=== PATIENT | female | born 1935 | race Caucasian/White ===

== ENCOUNTER 2017-12-17 15:14 | Emergency (ER) | payer MEDICARE, OTHER ==
--- NOTE | 2017-12-17 16:22 | RAD ---
THREE VIEWS LEFT ANKLE: DATE: 12/17/17. HISTORY: Left ankle injury after falling down stairs. Left ankle pain. FINDINGS: The ankle mortise is congruent. No fracture or dislocation is seen. There is a tiny corticated osse ous density adjacent to the medial malleolus that may represent either a tiny avulsion injury versus accessory center of ossification. The ankle mortise is congruent. Plantar and posterior calcaneal e nthesophytes are identified. There is osteopenia. Vascular calcifications are seen anterior to the ankle. IMPRESSION: No acute osseous abnormality of the left ankle. POS: OFF
--- NOTE | 2017-12-17 16:22 | RAD ---
TWO VIEWS LEFT HIP: 12/17/17 HISTORY: Left hip pain. FINDINGS: No acute fracture or dislocation is seen. No lytic or sclerotic osseous lesions are appreciated. IMPRESSION: No acute osseous abnormality left hip. POS: OFF
--- NOTE | 2017-12-17 16:23 | RAD ---
AP PELVIS RADIOGRAPH: DATE: 12/17/17. HISTORY: Left hip pain. FINDINGS: There is no evidence of a fracture or dislocation. No lytic or sclerotic osseous lesions are seen. 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 IMPRESSION: No acute osseous abnormality. POS: OFF
== END 2017-12-17 17:03 | disposition home or self-care (01) ==
LOC: ERS 15:14
DX: S93.402A Sprain of unspecified ligament of left ankle, initial encounter (principal); W10.9XXA Fall (on) (from) unspecified stairs and steps, initial encounter
CPT/HCPCS: 72170

== ENCOUNTER 2018-06-04 10:37 | Outpatient (CLI) | payer MEDICARE, OTHER ==
[2018-06-04] MEDS ORDERED: Iopamidol 370 76% 100 ML VIAL ONE (11:33)
== END 2018-06-04 10:38 | disposition home or self-care (01) ==
LOC: BICCT 10:37
PROVIDERS: ATTEND Internal Medicine Gastroenterology
DX: R10.32 Left lower quadrant pain (principal); K46.9 Unspecified abdominal hernia without obstruction or gangrene; N28.9 Disorder of kidney and ureter, unspecified
CPT/HCPCS: 74177; 82565

== ENCOUNTER 2018-10-22 09:36 | Outpatient (CLI) | payer MEDICARE, OTHER ==
--- NOTE | 2018-10-22 11:17 | RAD ---
4 VIEWS LUMBAR SPINE: Date: 10/22/18 HISTORY: Back injection. FINDINGS: There are five lumbar-type vertebral bodies. There is diffuse bone demineralization. Vertebral body h eight is maintained. There is no fracture. There is mild to moderate loss of disc space height at L2- L3 and mild to moderate loss of disc space height at L5-S1. In the neutral position, no spondylolisth esis. Upon flexion or extension, no abnormal alignment or motion. Atherosclerosis of aorta is noted. IMPRESSION: 1. Degenerative changes of lumbar spine as above. 2. No evidence of spondylolisthesis or spondylolysis. POS: [facility]
== END 2018-10-22 09:37 | disposition home or self-care (01) ==
LOC: TBSIIMAG 09:36
PROVIDERS: ATTEND Surgery
DX: M48.061 Spinal stenosis, lumbar region without neurogenic claudication (principal); M51.36 Other intervertebral disc degeneration, lumbar region; M54.5 Low back pain; M47.816 Spondylosis without myelopathy or radiculopathy, lumbar region
CPT/HCPCS: 72110

== ENCOUNTER 2018-10-27 10:11 | Outpatient (CLI) | payer MEDICARE, OTHER | END 2018-10-27 10:12 | disposition home or self-care (01) | LOC: BICMAMMO 10:11 | PROVIDERS: ATTEND Internal Medicine | DX: Z12.31 Encounter for screening mammogram for malignant neoplasm of breast (principal); Z80.3 Family history of malignant neoplasm of breast; Z85.3 Personal history of malignant neoplasm of breast | CPT/HCPCS: 77063; 77067 ==

== ENCOUNTER 2018-12-23 14:12 | Outpatient (CLI) | payer MEDICARE, OTHER ==
--- NOTE | 2018-12-23 19:39 | MRI ---
MRI LUMBAR SPINE WITHOUT CONTRAST: HISTORY: Lumbar radiculopathy. Low back pain with radiation into the right leg. COMPARISON: None. TECHNIQUE: An MRI of the lumbar spine is performed with intravenous Gadolinium administration. Multisequential, multiplanar imaging is performed. FINDINGS: There are type I modic changes at L2-L3. Lumbar spine vertebral body height is maintained. There is no fracture. T2 hyperintensities in the left and right renal cortex, compatible with cortical cysts . No retroperitoneal mass, lymphadenopathy, or hematoma. Signal intensity of the psoas muscles. The conus medullaris terminates at the upper aspect of L1. T12-L1: Desiccation with mild loss of disk space height. Minimal central disk protrusion. No signi ficant central canal stenosis. Mild bilateral neural foraminal narrowing. L1-L2: Desiccation with mild loss of disk space height. Generalized disk bulge results in mild cent ral canal stenosis. The neural foramina are mildly narrowed bilaterally. L2-L3: Desiccation with mild loss of disk space height. Generalized disk bulge, ligamentum flavum t hickening, and facet hypertrophy result in mild central canal stenosis. There is narrowing of both s ubarticular zones with mass effect, without obscuration of bilateral traversing L3 nerve roots. Mild to moderate bilateral foraminal narrowing. L3-L4: Desiccation with mild loss of disk space height. There is a generalized disk bulge, ligament um flavum thickening, and facet hypertrophy that results in mild central canal stenosis. Mild encroa chment upon both subarticular zones, secondary to disk material. There is mass effect without obscur ation of bilateral traversing L4 nerve roots. The neural foramina are mildly narrowed bilaterally. L4-L5: There is mild loss of disk space height. There is a broad-based disk bulge with a central an nular fissure. Ligamentum flavum thickening and facet hypertrophy are present. There is resultant m ild to moderate central canal stenosis. Mild bilateral foraminal narrowing. L5-S1: Desiccation with moderate loss of disk space height. There is a broad-based disk bulge, liga mentum flavum thickening, and facet hypertrophy that results in mild central canal stenosis. Narrowi ng of both subarticular zones, left slightly greater than right. There is mass effect with mild obsc uration of both traversing S1 nerve roots. Small amount of fluid in both facet joints. Moderate rig ht and moderate to severe left foraminal narrowing. IMPRESSION: Degenerative changes of the lumbar spine, as above. POS: [facility]
== END 2018-12-23 14:13 | disposition home or self-care (01) ==
LOC: BICMRI 14:12
PROVIDERS: ATTEND Surgery
DX: M47.26 Other spondylosis with radiculopathy, lumbar region (principal); M47.27 Other spondylosis with radiculopathy, lumbosacral region
CPT/HCPCS: 72148

== ENCOUNTER 2019-01-06 00:18 | Outpatient (CLI) | payer MEDICARE, OTHER ==
[2019-01-06 11:43] LABS: INR-International Normal Ratio 0.9; Prothrombin Time 12.3 SEC (12.0-14.7)
[2019-01-06 11:44] LABS: #Basophils 0.1 thou/uL (0.0-0.2); #Eosinphils 0.2 thou/uL (0.0-0.7); #Monocytes 0.6 thou/uL (0.11-0.59); #Neutrophils 2.8 thou/uL (1.40-6.50); %Basophils 1.1 % (0.0-1.0); %Eosinophils 3.6 % (0.0-10.0); %Lymphocytes 34.7 % (21.0-51.0); %Monocytes 11.4 % (0.0-10.0); %Neutrophils 49.1 % (42.0-75.0); Hemoglobin 14.3 g/dL (12.0-16.0); Mean Corpuscular HGB CONC 32.9 g/dL (32.0-36.0); Mean Corpuscular Hemoglobin 33.1 pg (27.0-31.0); Mean Platelet Volume 7.2 fL (7.4-10.4); Platelet Count 259 thou/uL (130-400); RBC Distribution Width 11.1 % (11.5-14.5); Red Blood Cell (RBC) Count 4.33 mill/uL (4.20-5.40); White Blood Cell (WBC) Count 5.7 thou/uL (4.8-10.8)
[2019-01-06 11:59] LABS: Anion Gap 14 mmol/L (10-20); BUN (Urea Nitrogen) 13 mg/dL (9.8-20.1); Calc. Creatinine Clearance 0 mL/min (70-130); Calcium 10.1 mg/dL (7.8-10.44); Carbon Dioxide 27 mmol/L (23-31); Chloride 104 mmol/L (98-107); Estimated GFR-MDRD 76; Glucose 92 mg/dL (83-110); Potassium 3.7 mmol/L (3.5-5.1); Sodium 141 mmol/L (136-145)
== END 2019-01-06 00:19 | disposition home or self-care (01) ==
LOC: LABBT 00:18
PROVIDERS: ATTEND Surgery
DX: Z12.31 Encounter for screening mammogram for malignant neoplasm of breast (principal); M54.16 Radiculopathy, lumbar region; M48.061 Spinal stenosis, lumbar region without neurogenic claudication
CPT/HCPCS: 80048; 85025; 85610; 85730; 93005; 93010

== ENCOUNTER 2019-01-13 07:20 | Observation (INO) | payer MEDICARE, OTHER ==
[2019-01-06 09:51] VITALS: BMI 23.8
[2019-01-13] MEDS ORDERED: Clindamycin/D5W 900 mg/50 ml Premix Bag ONE (08:13)
[2019-01-13] MEDS ORDERED: Levofloxacin 500 mg/D5W 100 ml Premix Bag ONE (08:13)
[2019-01-13] MEDS ORDERED: Famotidine/PF 20 mg/2ml Vial ONE (08:28)
[2019-01-13] MEDS ORDERED: Sodium Chloride 0.9% 0 ML ONE (10:19)
[2019-01-13] MEDS ORDERED: Bacitracin Zinc Ointment 30 gm TUBE ONE ×2 (10:19→10:37)
[2019-01-13] MEDS ORDERED: Thrombin 5000 UNITS/5 ML VIAL ONE ×2 (10:19→10:37)
[2019-01-13] MEDS ORDERED: Fentanyl 100 MCG/2 ML VIAL ONE ×3 (10:23→13:36)
[2019-01-13] MEDS ORDERED: Sodium Chloride 0.9% 10 ML ONE (10:37)
[2019-01-13] MEDS ORDERED: Dexamethasone 20 MG/5 ML VIAL ONE (10:50)
[2019-01-13] MEDS ORDERED: PROPOFOL 200 MG/20 ML VIAL ONE (10:50)
[2019-01-13] MEDS ORDERED: Rocuronium Bromide 10 MG/ML (10ML VIAL) ONE (10:50)
[2019-01-13] MEDS ORDERED: Glycopyrrolate 0.2 MG/ML 5 ML SYRINGE ONE (10:50)
[2019-01-13] MEDS ORDERED: Lidocaine 1% PF 5 ML VIAL ONE (10:50)
[2019-01-13] MEDS ORDERED: Ondansetron PF 4 MG/2 ML Vial ONE (10:50)
[2019-01-13] MEDS ORDERED: ePHEDrine 50 MG/ML VIAL ONE (10:50)
[2019-01-13] MEDS ORDERED: Promethazine HCl 25 MG/ML VIAL SLOW IVP PRN (11:53)
[2019-01-13] MEDS ORDERED: Meperidine HCl/PF 25 MG/ML VIAL SLOW IVP PRN (11:53)
[2019-01-13] MEDS ORDERED: Promethazine HCl 25 MG/ML VIAL IM PRN ×2 (11:53→12:34)
[2019-01-13] MEDS ORDERED: Mag-Al 1200 mg/1200 mg/30 ML UDCUP PO PRN (12:34)
[2019-01-13] MEDS ORDERED: Bisacodyl 10 MG SUPP PR PRN (12:34)
[2019-01-13] MEDS ORDERED: Fleet Enema 133 ML BOT PR PRN (12:34)
[2019-01-13] MEDS ORDERED: Milk Of Magnesia 30 ML UDCUP PO PRN (12:34)
[2019-01-13] MEDS ORDERED: Morphine 4 MG/ML VIAL SLOW IVP PRN (12:34)
[2019-01-13] MEDS ORDERED: cloNIDine 0.1 MG TAB PO PRN (12:38)
--- NOTE | 2019-01-13 12:47 | OP ---
DATE OF PROCEDURE: 01/13/2019 TRADE ECONOMIST: Rudolph Marshall PA-C. PREPROCEDURE DIAGNOSIS: Lumbar stenosis with low back and leg pain. POSTPROCEDURE DIAGNOSIS: Lumbar stenosis with low back and leg pain. PROCEDURES PERFORMED: L4-L5 and L5-S1 laminectomies, partial facetectomies, and foraminotomies, L4-L5 and L5-S1 nerve root. DESCRIPTION OF PROCEDURE: After informed consent was obtained from the patient, the patient was brought to the OR. Proper patient, pause, and identification were carried out. She was placed under excellent general endotracheal anesthesia and positioned prone on the OR table. All appropriate points were padded. We identified the L4, L5, and S1 dorsal spines and lamina and a linear joe was made over this area. This region was sterilely cleansed, prepared, and draped. Proper patient, pause, and identification were carried out. The wound was then opened with combination of sharp, monopolar, and blunt dissection, and we achieved excellent decompression of the L4, L5, and S1 nerve roots bilaterally and the thecal sac. Copious irrigation occurred throughout as did maximizing hemostasis. The wound was then closed in anatomic layers following sprinkling of vancomycin powder. The patient then emerged from anesthesia. Job ID: [id number]
[2019-01-13] MEDS ORDERED: Promethazine HCl 25 MG/ML VIAL ONE (13:03)
[2019-01-13] MEDS: HYDROcodone/Acetaminophen 7.5/325 mg Tablet PO PRN (16:22)
[2019-01-13] MEDS: Sodium Chloride 0.9% 1,000 ML IV SCH (16:25)
[2019-01-13] MEDS: Clindamycin/D5W 900 MG in Premix Bag 1 BAG IVPB SCH (16:25)
[2019-01-13] MEDS: tiZANidine HCl 4 MG TAB PO PRN (20:58)
[2019-01-13] MEDS ORDERED: Prevnar 13-Val Conj/PF 0.5 ML SYRINGE IM ONE (21:00)
[2019-01-14] MEDS: Clindamycin/D5W 900 MG in Premix Bag 1 BAG IVPB SCH (00:32)
[2019-01-14] MEDS: Sodium Chloride 0.9% 1,000 ML IV SCH ×3 (01:38→22:21)
[2019-01-14] MEDS: Amlodipine 5 MG TAB PO SCH (08:47)
[2019-01-14] MEDS: Losartan 25 MG TAB PO SCH (08:47)
[2019-01-14] MEDS: HYDROcodone/Acetaminophen 7.5/325 mg Tablet PO PRN (14:01)
--- NOTE | 2019-01-14 17:18 | PRG ---
DATE OF SERVICE: 01/14/2019 SUBJECTIVE: Ms. Canseco is postoperative day #1 from L4 through S1 laminectomy, partial facetectomy, and foraminotomies. She has had resolution in her leg pain and has mobilized in the hallway. Her has Parkinson disease, and she lives at home with him. He is not able to take care of her in the postoperative period, and I think it would be in her best interest to consider inpatient rehab, and we have placed a consultation in it for evaluation in this regard. I supposed it is possible over the weekend that she recovers enough from her surgery that the extended family member who is here could also assist. We will see how she does over the next 24 to 48 hours. Job ID: [id number]
[2019-01-14] MEDS: tiZANidine HCl 4 MG TAB PO PRN (20:12)
[2019-01-14] MEDS: Acetaminophen 325 MG TAB PO PRN (20:12)
[2019-01-14] MEDS ORDERED: Clopidogrel Bisulfate 75 MG TAB ONE (21:08)
[2019-01-15] MEDS: traMADol HCl 50 MG TAB PO PRN ×2 (06:26→16:46)
[2019-01-15] MEDS: tiZANidine HCl 4 MG TAB PO PRN (06:26)
[2019-01-15 07:18] LABS: #Eosinphils 0.1 thou/uL (0.0-0.7); #Lymphocytes 2.2 thou/uL (1.20-3.40); #Monocytes 1.3 thou/uL (0.11-0.59); #Neutrophils 5.2 thou/uL (1.40-6.50); %Basophils 0.5 % (0.0-1.0); %Eosinophils 0.9 % (0.0-10.0); %Lymphocytes 24.8 % (21.0-51.0); %Monocytes 14.4 % (0.0-10.0); %Neutrophils 59.3 % (42.0-75.0); Hemoglobin 11.2 g/dL (12.0-16.0); Mean Corpuscular HGB CONC 32.2 g/dL (32.0-36.0); Mean Corpuscular Hemoglobin 33.4 pg (27.0-31.0); Mean Platelet Volume 6.9 fL (7.4-10.4); Platelet Count 204 thou/uL (130-400); RBC Distribution Width 11.2 % (11.5-14.5); Red Blood Cell (RBC) Count 3.35 mill/uL (4.20-5.40); White Blood Cell (WBC) Count 8.7 thou/uL (4.8-10.8)
[2019-01-15 07:45] LABS: Anion Gap 10 mmol/L (10-20); BUN (Urea Nitrogen) 13 mg/dL (9.8-20.1); Calc. Creatinine Clearance 52 mL/min (70-130); Calcium 9.2 mg/dL (7.8-10.44); Carbon Dioxide 30 mmol/L (23-31); Chloride 105 mmol/L (98-107); Estimated GFR-MDRD 76; Glucose 83 mg/dL (83-110); Potassium 3.8 mmol/L (3.5-5.1); Sodium 141 mmol/L (136-145)
[2019-01-15] MEDS ORDERED: Ketorolac Tromethamine 30 MG/ML VIAL IVP SCH (08:00)
--- NOTE | 2019-01-15 11:28 | PRG ---
DATE OF SERVICE: 01/15/2019 SUBJECTIVE: Ms. Canseco is two days status post laminectomy. She continues to struggle with a substantial amount of predominantly axial back pain. Physical therapy was about to work with her when I entered the room. We are waiting for rehab placement. In the meanwhile, we will continue to treat her with physical therapy. I have encouraged her to remain active and motivated to recover. Job ID: [id number]
[2019-01-15] MEDS ORDERED: Ondansetron PF 4 MG/2 ML Vial IVP PRN (12:21)
[2019-01-15] MEDS ORDERED: Ondansetron ODT 4 MG TAB PO PRN (12:21)
[2019-01-15] MEDS: Amlodipine 5 MG TAB PO SCH (16:37)
[2019-01-15] MEDS: Losartan 25 MG TAB PO SCH (16:38)
[2019-01-15] MEDS: Acetaminophen 325 MG TAB PO PRN ×2 (16:40→20:55)
[2019-01-15] MEDS: Sodium Chloride 0.9% 1,000 ML IV SCH (19:33)
[2019-01-16] MEDS: traMADol HCl 50 MG TAB PO PRN (05:15)
[2019-01-16] MEDS: Acetaminophen 325 MG TAB PO PRN (05:16)
--- NOTE | 2019-01-16 07:40 | PRG ---
DATE OF SERVICE: Ms. Canseco is postop day #3 following lumbar laminectomy with Dr. Salinas and yesterday well she did have significant amount of pain and a rather difficult day. This morning, her pains have significantly improved. Plan for today again will be therapy and ambulation and to get her out of bed more frequently. We will anticipate again transfer to rehab sometime in the beginning of the week. We will follow up with the mental health case manager in the morning. Job ID: [id number]
[2019-01-16] MEDS: Sodium Chloride 0.9% 1,000 ML IV SCH (08:10)
[2019-01-16] MEDS: Amlodipine 5 MG TAB PO SCH (08:11)
[2019-01-16] MEDS: Losartan 25 MG TAB PO SCH (08:11)
[2019-01-16 08:17] VITALS: TEMP 98
[2019-01-16 11:57] VITALS: BP 116/61
--- NOTE | 2019-01-17 08:34 | PRG ---
DATE OF SERVICE: 01/15/2019 SUBJECTIVE: Ms. Luo is now postop day 2 following lumbar decompression with Dr. Salinas. Yesterday, she states that she well and then overnight started to have increasing lower back pain. She received one dose of pain medications earlier this morning and it seems to have made her more comfortable. She was thus ambulating well in the hallways, but since her pain surfaced that often, I have limited her mobility. I will see if I can add some p.r.n. Toradol for a couple of doses to get her pain back into a more tolerable zone allowing her to ambulate. We will await to see how well she does over the next 24 to 48 hours to see if she will need either inpatient rehab placement or safe enough to be discharged home. Wound is very well approximated Job ID: [id number]
--- NOTE | 2019-01-17 13:16 | DIS ---
DATE OF ADMISSION: 01/13/2019 DATE OF DISCHARGE: 01/16/2019 HISTORY OF PRESENT ILLNESS: Ms. Canseco is an 83-year-old woman, who was admitted to [facility] on 01/13/[address] Charles Salinas. ADMISSION DIAGNOSIS: Status post lumbar decompression. DISCHARGE DIAGNOSIS: Status post lumbar decompression. HOSPITAL COURSE: Ms. Canseco's hospital course was somewhat complicated by mild pain control issues that were controlled with IV and oral pain medications of our typical priority. She ambulated with physical therapy each day that she was here, admitted. Consultations were ordered for PT/OT, Case Management, and inpatient rehab. She ultimately was approved for rehab and accepted and was discharged on 01/16/2019 to that facility with outpatient followup planned in the outpatient clinic in 2 weeks. Job ID: [id number]
== END 2019-01-16 15:44 ==
LOC: SDC 07:20 → SURG A 15:00
PROVIDERS: ADMIT Surgery; ATTEND Surgery
PROC: 01NB0ZZ Release Lumbar Nerve, Open Approach (ICD-10-PCS; principal; 2019-01-13)
DX: M48.061 Spinal stenosis, lumbar region without neurogenic claudication (principal); Z88.5 Allergy status to narcotic agent; Z88.0 Allergy status to penicillin; Z88.2 Allergy status to sulfonamides; Z79.899 Other long term (current) drug therapy
CPT/HCPCS: 63047; 63048; 76000; 80048; 85025; 96365; 96366; 96367; 97110 ×2; 97116 ×2; 97139 ×2; 97535; G0378 ×5; 36415; J0131; J1100; J1956; J2001; J2405; J2550; J2704; J3010; J3370; J3490; S0028

== ENCOUNTER 2019-09-21 09:47 | Outpatient (CLI) | payer MEDICARE, OTHER ==
--- NOTE | 2019-09-21 12:06 | MRI ---
MRI thoracic spine with and without contrast: DATE: 09/21/2019 HISTORY: 83-year-old female with history of breast cancer presents with mid and low back pain, and difficulty walking. Rule out cord compression. FINDINGS: There is ACDF hardware in the cervical spine down to the C7 level. The thoracic spinal canal is gener ous in caliber at all levels. Conus medullaris terminates at L1. There is a vertically elongated thin T1 and T2 hypointense mass in the anterior epidural space which is inseparable from the posterio r edge of the T12-L1 intervertebral disc and that of L1-2. This appearance is unchanged since 12/23/2018, and could either represent a extruded disc herniation with migration or calcified posterio r longitudinal ligament. This does not cause significant central spinal canal stenosis. Vertebral body heights are maintained. No high-grade neural foraminal stenosis in the thoracic spine. No high-g rade degenerative disc disease in the thoracic spine. Mild degenerative disc disease at T12-L1 and T11-12. Normal bone marrow signal except for small hemangioma of bone at the posterior aspect of the T4 vertebral body. Thoracic spinal cord is normal in size, with no syringohydromyelia. No cord impingement. No abnormal enhancement or mass in the intramedullary, extramedullary-intradural, extrad ural, intraosseous, or perivertebral, spaces. Cerebral small T2 hyperintense lesions in the bilateral kidneys, incompletely evaluated. At least most of them are small cysts. IMPRESSION: 1. No cord compression, central spinal canal stenosis, or neural foraminal stenosis, at a level in th e thoracic spine. 2. Vertically thin but long midline central disc extrusion in the anterior epidural space throughout the height of T12, either representing extruded disc material from T12-L1 with inferior migration down to the L1-2 level, or extruded disc material from L1 to superiorly migrating to the T12-L1 level . This is unchanged since lumbar spine MRI of 12/23/2018, and does not impinge on nerve roots or cause significant central spinal canal stenosis. 3. Otherwise, the rest of the thoracic spine is normal.
--- NOTE | 2019-09-21 13:12 | RAD ---
4 VIEWS OF THE LUMBAR SPINE:: 09/21/2019 COMPARISON: 10/22/2018 HISTORY: Radiculopathy FINDINGS: There is atherosclerotic calcification of the abdominal aorta. The patient appears status post bilateral laminectomy at L4/L5. Neutral lateral imaging demonstrates no anterolisthesis or retrolisthesis. There is disc space narrow ing and degenerative endplate change at L2-3 and to a lesser degree, L5-S1. The flexion imaging and the extension imaging demonstrates no anterolisthesis or retrolisthesis. Lumbar pedicles appear intac t on frontal imaging. No acute osseous abnormality. IMPRESSION: Degenerative changes as detailed above. Transcribed Date/Time: 09/21/2019 1:20 PM
--- NOTE | 2019-09-21 13:33 | MRI ---
MRI lumbar spine with and without contrast: 09/21/2019 COMPARISON: Noncontrast enhanced MRI lumbar spine 12/23/2018 HISTORY: Low back pain radiating "up the spine" Technique: Multiplanar multisequence MR imaging of the lumbar spine obtained with and without contras t FINDINGS: The sagittal STIR imaging demonstrates mild edematous degenerative endplate change at the L 2-3 level. There is evidence of bilateral laminectomy changes at L4 and L5 with associated mild increased STIR signal within the soft tissues posterior to the thecal sac at this level, extending in to the region of the adjacent paraspinal musculature, likely on the basis of postoperative change. There is a 7 mm round fluid collection posterior to the thecal sac at the axial level of the L4-5 int ervertebral disc suggesting a small nonspecific postoperative fluid collection. On the basis of 5 lumbar type vertebral bodies, the conus medullaris terminates at T12-L1. T12-L1: There is disc desiccation and mild disc space narrowing with a small central disc protrusion. No associated central canal or neural foraminal stenosis. L1-2: There is disc space narrowing and disc desiccation with mild disc bulge. There is a small centr al/right paracentral disc protrusion with no associated central canal or neural foraminal stenosis. L2-3: There is disc space narrowing and disc desiccation with anterior osteophyte formation, degenera tive endplate change, and a disc osteophyte complex. This effaces the ventral thecal sac and causes a mild degree of central canal stenosis. Mild bilateral facet hypertrophy and hypertrophy of the liga mentum flavum noted with mild bilateral neural foraminal stenosis. L3-4: Mild bilateral facet hypertrophy and hypertrophy of the ligamentum flavum. There is disc space narrowing and disc desiccation with disc bulge. There is a small foraminal and post foraminal disc protrusion on the right. There is no significant central canal stenosis. No significant neural forami nal stenosis is noted on either side. L4-5: There is bilateral facet hypertrophy. No significant central canal or neural foraminal stenosis . There is disc space narrowing and disc desiccation with mild disc bulge. L5-S1: There is disc space narrowing and disc desiccation with mild disc bulge. No significant centra l canal stenosis. There is bilateral facet hypertrophy, left greater than right. Mild right and moderate left neural foraminal stenosis. Aside from the new postoperative changes, there has been no significant interval change when compared to 12/23/2018 examination. The postcontrast imaging demonstrates prominent enhancement involving the soft tissues posterior to t he thecal sac just to the right and just to the left of midline at the axial level of the L4-5 disc extending to the axial level of the S1 vertebral body including enhancement of the medial musculature bilaterally and the postoperative region. There is no abnormal enhancement involving the nerve roots of the cauda equina, the visualized osseous structures, or the intervertebral discs. The visualized retroperitoneal structures demonstrate no acute findings. IMPRESSION: Postoperative and degenerative changes within the lumbar spine as detailed above. There i s significant enhancement involving the soft tissues posterior to the thecal sac at the postoperative site, including the paraspinal musculature, suggesting significant postoperative scar.
[2019-09-21] MEDS ORDERED: Magnevist 469MG/ML 20 ML VIAL ONE ×2 (14:32→14:33)
== END 2019-09-21 09:48 | disposition home or self-care (01) ==
LOC: BICMRI 09:47
PROVIDERS: ATTEND Surgery
DX: M47.26 Other spondylosis with radiculopathy, lumbar region (principal); M48.061 Spinal stenosis, lumbar region without neurogenic claudication; M54.5 Low back pain; Z98.890 Other specified postprocedural states
CPT/HCPCS: 72110; 72157; 72158; 82565; A9579

== ENCOUNTER 2019-10-18 09:29 | Outpatient (CLI) | payer MEDICARE, OTHER ==
--- NOTE | 2019-10-19 07:36 | RAD ---
EXAM: 2 views of the left hip HISTORY: Left hip pain COMPARISON: None FINDINGS: 2 views of the left hip shows no evidence of acute fracture or dislocation. No degenerative changes are seen. No soft tissue swelling is present. IMPRESSION: No evidence of acute osseous abnormality.
== END 2019-10-18 09:30 | disposition home or self-care (01) ==
LOC: BICRAD 09:29
PROVIDERS: ATTEND Nurse Practitioner Family
DX: M25.552 Pain in left hip (principal)

== ENCOUNTER 2019-10-28 09:07 | Outpatient (CLI) | payer MEDICARE, OTHER ==
--- NOTE | 2019-10-28 09:58 | MMO ---
Bilateral MAMMO Bilat Screen [facility]. CLINICAL HISTORY: Patient is 83 years old and is seen for screening. The patient has the following family history of breast cancer: mother and sister. The patient has a history of left Lumpectomy in 2009 - malignant and left Lumpectomy in 2009 - malignant. VIEWS: The views performed were: bilateral craniocaudal with tomosynthesis and bilateral mediolateral oblique with tomosynthesis. FILMS COMPARED: The present examination has been compared to prior imaging studies performed at [facility] on 09/27/2015, 09/30/2016, 10/06/2017 and 10/27/2018. This study has been interpreted with the assistance of computer-aided detection. MAMMOGRAM FINDINGS: The breasts are heterogeneously dense, which could obscure a lesion on mammography. Finding 1: There are stable benign appearing calcifications seen in both breasts. Finding 2: There are multiple stable nodules of varying size seen in both breasts. There are no suspicious masses, suspicious calcifications, or new areas of architectural distortion. IMPRESSION: THERE IS NO MAMMOGRAPHIC EVIDENCE OF MALIGNANCY. A ROUTINE FOLLOW-UP MAMMOGRAM IN 1 YEAR IS RECOMMENDED. THE RESULTS OF THIS EXAM WERE SENT TO THE PATIENT. ACR BI-RADS Category 2 - Benign finding MAMMOGRAPHY NOTE: 1. A negative mammogram report should not delay a biopsy if a dominant of clinically suspicious mass is present. 2. Approximately 10% to 15% of breast cancers are not detected by mammography. 3. Adenosis and dense breasts may obscure an underlying neoplasm. Reported by: VICKY MICHELLE MD Electonically Signed: [id number]
== END 2019-10-28 09:08 | disposition home or self-care (01) ==
LOC: BICMAMMO 09:07
PROVIDERS: ATTEND Internal Medicine
DX: Z12.31 Encounter for screening mammogram for malignant neoplasm of breast (principal); Z80.3 Family history of malignant neoplasm of breast
CPT/HCPCS: 77063; 77067

== ENCOUNTER 2020-10-30 09:45 | Outpatient (CLI) | payer MEDICARE, OTHER ==
--- NOTE | 2020-10-30 10:48 | MMO ---
Bilateral MAMMO Bilat Screen [facility]. CLINICAL HISTORY: Patient is 84 years old and is seen for screening. The patient has the following family history of breast cancer: mother and sister. The patient has a history of left Lumpectomy in 2009 - malignant and left Lumpectomy in 2009 - malignant. VIEWS: The views performed were: bilateral craniocaudal with tomosynthesis and bilateral mediolateral oblique with tomosynthesis. FILMS COMPARED: The present examination has been compared to prior imaging studies performed at [facility] on 09/30/2016, 10/06/2017, 10/27/2018 and 10/28/2019. This study has been interpreted with the assistance of computer-aided detection. MAMMOGRAM FINDINGS: The breasts are heterogeneously dense, which could obscure a lesion on mammography. There are stable nodules seen in both breasts. There are no suspicious masses, suspicious calcifications, or new areas of architectural distortion. IMPRESSION: THERE IS NO MAMMOGRAPHIC EVIDENCE OF MALIGNANCY. A ROUTINE FOLLOW-UP MAMMOGRAM IN 1 YEAR IS RECOMMENDED. THE RESULTS OF THIS EXAM WERE SENT TO THE PATIENT. ACR BI-RADS Category 2 - Benign finding MAMMOGRAPHY NOTE: 1. A negative mammogram report should not delay a biopsy if a dominant of clinically suspicious mass is present. 2. Approximately 10% to 15% of breast cancers are not detected by mammography. 3. Adenosis and dense breasts may obscure an underlying neoplasm. Reported by: SANDRA WORLEY MD Electonically Signed: [id number]
== END 2020-10-30 09:46 | disposition home or self-care (01) ==
LOC: BICMAMMO 09:45
PROVIDERS: ATTEND Internal Medicine
DX: Z12.31 Encounter for screening mammogram for malignant neoplasm of breast (principal); Z98.890 Other specified postprocedural states; Z80.3 Family history of malignant neoplasm of breast
CPT/HCPCS: 77063; 77067

== ENCOUNTER 2021-01-23 17:34 | Inpatient (IN) | payer MEDICARE, OTHER ==
[~2021-01-23 17:34] MED LIST: Iopamidol-370 76% 500 ML 1 ML ONE
[2021-01-23] MEDS ORDERED: Aspirin Chewable 81 MG TAB ONE (19:32)
[2021-01-24 05:05] VITALS: BMI 22.6
[2021-01-24 08:25] VITALS: TEMP 97.8
[2021-01-24] MEDS ORDERED: Aspirin 81 mg Enteric Coated Tablet PO SCH (09:00)
[2021-01-24 12:29] VITALS: BP 182/74
[2021-01-24] MEDS ORDERED: Atorvastatin Calcium 40 MG TAB PO SCH (21:00)
[2021-01-24] MEDS ORDERED: FLU VACC QS2020-21(65YR UP)/PF 240 MCG/0.7 ML SYRINGE IM ONE (21:00)
[2021-01-24] MEDS ORDERED: Atorvastatin Calcium 10 MG TAB PO SCH (21:00)
[2021-01-25] MEDS ORDERED: Clopidogrel Bisulfate 75 MG TAB PO SCH (09:00)
== END 2021-01-24 15:35 | disposition home or self-care (01) | DRG 68 ==
LOC: ERS 17:34 → ERHOLD 19:50 → 2SE 01-24 04:53
PROVIDERS: ADMIT Student in an Organized Health Care Education/Training Program; ATTEND Internal Medicine
DX: I65.22 Occlusion and stenosis of left carotid artery (principal); I10 Essential (primary) hypertension; I08.3 Combined rheumatic disorders of mitral, aortic and tricuspid valves; Z20.822 Contact with and (suspected) exposure to COVID-19; Z85.3 Personal history of malignant neoplasm of breast; Z88.0 Allergy status to penicillin; Z88.2 Allergy status to sulfonamides; Z88.5 Allergy status to narcotic agent
CPT/HCPCS: 36415; 36416; 70450; 70496; 70498; 70551; 71045; 80053; 80061; 84484; 85025; 85610; 85730; 87635; 93005; 93306; Q9967; U0003; U0005

== ENCOUNTER 2021-02-04 09:05 | Outpatient (CLI) | payer MEDICARE, OTHER | END 2021-02-04 09:06 | disposition home or self-care (01) | LOC: RAD 09:05 | PROVIDERS: ATTEND Internal Medicine | DX: R13.10 Dysphagia, unspecified (principal); K22.5 Diverticulum of esophagus, acquired | CPT/HCPCS: 74220 ==

== ENCOUNTER 2021-02-11 14:30 | Inpatient (IN) | payer MEDICARE, OTHER ==
[2021-02-14] MEDS ORDERED: Clindamycin/D5W 600 mg/50 ml Premix Bag ONE (11:00)
[2021-02-14] MEDS ORDERED: Levofloxacin 500 mg/D5W 100 ml Premix Bag ONE (11:00)
[2021-02-14] MEDS ORDERED: Fentanyl 100 MCG/2 ML VIAL ONE ×2 (11:53→18:40)
[2021-02-14] MEDS ORDERED: Bupivacaine PF 0.5% 30 ML VIAL ONE (12:13)
[2021-02-14] MEDS ORDERED: Dexamethasone 4 mg/ml Vial ONE ×2 (12:13→16:24)
[2021-02-14] MEDS ORDERED: EPINEPHrine 1 MG/ML AMP ONE (12:13)
[2021-02-14] MEDS ORDERED: Heparin 5,000 UNITS/ML VIAL ONE (12:13)
[2021-02-14] MEDS ORDERED: Protamine Sulfate 50 MG/5 ML VIAL ONE ×2 (12:13→14:39)
[2021-02-14] MEDS ORDERED: PHENYLEPHRINE-NS 100 MCG/ML 10 ML SYRINGE ONE ×2 (12:53→13:35)
[2021-02-14] MEDS ORDERED: PROPOFOL 200 MG/20 ML VIAL ONE (12:53)
[2021-02-14] MEDS ORDERED: Esmolol 100 MG/10 ML VIAL ONE (12:53)
[2021-02-14] MEDS ORDERED: Dexamethasone 20 MG/5 ML VIAL ONE (12:53)
[2021-02-14] MEDS ORDERED: Rocuronium Bromide 10 MG/ML (10ML VIAL) ONE (12:53)
[2021-02-14] MEDS ORDERED: Ondansetron PF 4 MG/2 ML Vial ONE ×2 (12:53→16:04)
[2021-02-14] MEDS ORDERED: Glycopyrrolate 0.2 MG/ML 5 ML SYRINGE ONE (12:53)
[2021-02-14] MEDS ORDERED: ePHEDrine Sulfate 50 MG/10 ML VIAL ONE ×2 (12:53→16:32)
[2021-02-14] MEDS ORDERED: Calcium Chloride 1 GM/10 ML Abboject SYRINGE ONE (12:53)
[2021-02-14] MEDS ORDERED: SUGAMMADEX SODIUM 200 MG/2 ML VIAL ONE (15:23)
[2021-02-14] MEDS ORDERED: Promethazine HCl 25 MG/ML VIAL ONE (16:20)
[2021-02-14] MEDS ORDERED: Midazolam HCl 2 mg/2 ml Vial ONE (16:36)
[2021-02-14] MEDS ORDERED: Acetaminophen 325 MG TAB PO PRN (16:54)
[2021-02-14] MEDS ORDERED: Ondansetron PF 4 MG/2 ML Vial IVP PRN (16:54)
[2021-02-14] MEDS ORDERED: traMADol HCl 50 MG TAB PO PRN ×2 (16:54)
[2021-02-14] MEDS ORDERED: Nitroglycerin 50 MG/250 ML BOT 250 ML IVPB PRN (16:54)
[2021-02-14] MEDS ORDERED: hydrALAZINE 20 MG/ML VIAL SLOW IVP PRN (16:54)
[2021-02-14] MEDS ORDERED: Phenylephrine 40 MG in Sodium Chloride 0.9% 250 ML 250 ML IVPB PRN (16:54)
[2021-02-14] MEDS ORDERED: Promethazine HCl 25 MG/ML VIAL IM PRN (16:54)
[2021-02-14] MEDS: Sodium Chloride 0.9% 1,000 ML IV SCH (17:00)
[2021-02-14] MEDS ORDERED: Atorvastatin Calcium 10 MG TAB PO SCH (21:00)
[2021-02-15] MEDS: Sodium Chloride 0.9% 1,000 ML IV SCH (04:29)
[2021-02-15 04:57] VITALS: BMI 22.4
[2021-02-15] MEDS: Vit A,C & E/Lutein/Minerals Tablet PO SCH ×2 (05:07→08:21)
[2021-02-15 06:15] VITALS: TEMP 97.8
[2021-02-15] MEDS ORDERED: Cholecalciferol 1,000 UNITS (25 MCG) TAB PO SCH (09:00)
[2021-02-15] MEDS ORDERED: Aspirin 81 mg Enteric Coated Tablet PO SCH (09:00)
[2021-02-18 13:19] LABS: Actual Bicarbonate (HCO3a) 25.3 mEq/L (22-28); Analyzer IN Cardio OR; Base Excess (BEa) 2.3 mEq/L (-2.0 to +3.0); CO2 Tension 33.9 mmHg (35.0-45.0); Calcium, Ionized (arterial) 1.38 mmol/L (1.12-1.30); Carboxyhemoglobin (COHb) 0.4 gm% (0.0-3.0); Hemoglobin (Hb) 11.6 g/dL (12.0-16.0); Potassium - ABG Lab 3.45 mmol/L (3.70-5.30); pH, Arterial 7.49 (7.35-7.45)
[2021-02-18 13:20] LABS: O2 Tension (PaO2), arterial 552.7 mmHg (> 60.0); Puncture Site Arterial Line
== END 2021-02-15 09:40 | disposition home or self-care (01) | DRG 39 ==
LOC: SURG A 02-14 10:06 → EDSTATUS 02-14 14:30 → CCU 02-15 03:28
PROVIDERS: ADMIT Thoracic Surgery (Cardiothoracic Vascular Surgery); ATTEND Thoracic Surgery (Cardiothoracic Vascular Surgery)
PROC: B3171ZZ Fluoroscopy of Left Internal Carotid Artery using Low Osmolar Contrast (ICD-10-PCS; principal; 2021-02-14)
PROC: 03CJ0ZZ Extirpation of Matter from Left Common Carotid Artery, Open Approach (ICD-10-PCS; 2021-02-14)
PROC: 03CN0ZZ Extirpation of Matter from Left External Carotid Artery, Open Approach (ICD-10-PCS; 2021-02-14)
PROC: 03CL0ZZ Extirpation of Matter from Left Internal Carotid Artery, Open Approach (ICD-10-PCS; 2021-02-14)
PROC: 03UN0KZ Supplement Left External Carotid Artery with Nonautologous Tissue Substitute, Open Approach (ICD-10-PCS; 2021-02-14)
DX: I65.22 Occlusion and stenosis of left carotid artery (principal); Z88.0 Allergy status to penicillin; Z88.2 Allergy status to sulfonamides; Z88.6 Allergy status to analgesic agent; Z90.49 Acquired absence of other specified parts of digestive tract; Z90.710 Acquired absence of both cervix and uterus; Z98.49 Cataract extraction status, unspecified eye; Z98.890 Other specified postprocedural states; Z53.8 Procedure and treatment not carried out for other reasons; Z20.822 Contact with and (suspected) exposure to COVID-19
CPT/HCPCS: 36416; 76000; 82805; 87635; C1876; C1884; J0171; J1100; J1642; J1644; J1956; J2250; J2405; J2550; J2704; J2720; J3010; J3490; S0020; U0003; U0005

== ENCOUNTER 2021-02-11 14:46 | Outpatient (CLI) | payer MEDICARE, OTHER ==
[2021-02-12 05:52] LABS: SARS-CoV-2 PCR by NAA Not Detected (NotDetected)
== END 2021-02-11 14:47 | disposition home or self-care (01) ==
LOC: LABBT 14:46
PROVIDERS: ATTEND Thoracic Surgery (Cardiothoracic Vascular Surgery)
DX: Z01.812 Encounter for preprocedural laboratory examination (principal); Z20.822 Contact with and (suspected) exposure to COVID-19
CPT/HCPCS: U0003; U0005; 87635

== ENCOUNTER 2021-10-31 08:34 | Outpatient (CLI) | payer MEDICARE, OTHER | END 2021-10-31 08:35 | disposition home or self-care (01) | LOC: BICMAMMO 08:34 | PROVIDERS: ATTEND Internal Medicine | DX: Z12.31 Encounter for screening mammogram for malignant neoplasm of breast (principal); N63.10 Unspecified lump in the right breast, unspecified quadrant; Z80.3 Family history of malignant neoplasm of breast; Z98.890 Other specified postprocedural states | CPT/HCPCS: 77063; 77067 ==

== ENCOUNTER 2021-11-05 13:40 | Outpatient (CLI) | payer MEDICARE, OTHER | END 2021-11-05 13:41 | disposition home or self-care (01) | LOC: BICULT 13:40 | PROVIDERS: ATTEND Internal Medicine | DX: R92.8 Other abnormal and inconclusive findings on diagnostic imaging of breast (principal); N60.01 Solitary cyst of right breast ==

== ENCOUNTER 2022-02-13 15:58 | Emergency (ER) | payer MEDICARE, OTHER ==
[2022-02-13] MEDS ORDERED: Fentanyl 100 MCG/2 ML VIAL ONE (16:40)
[2022-02-13 16:43] LABS: #Eosinphils 0.1 thou/uL (0.0-0.7); #Lymphocytes 1.3 thou/uL (1.20-3.40); #Monocytes 0.9 thou/uL (0.11-0.59); #Neutrophils 9.2 thou/uL (1.40-6.50); %Basophils 0.4 % (0.0-1.0); %Eosinophils 0.4 % (0.0-10.0); %Lymphocytes 11.6 % (21.0-51.0); %Monocytes 7.6 % (0.0-10.0); %Neutrophils 79.9 % (42.0-75.0); Mean Corpuscular HGB CONC 32.5 g/dL (32.0-36.0); Mean Corpuscular Hemoglobin 33.7 pg (27.0-31.0); Mean Platelet Volume 6.5 fL (7.4-10.4); Platelet Count 234 thou/uL (130-400); RBC Distribution Width 11.4 % (11.5-14.5); Red Blood Cell (RBC) Count 4.17 mill/uL (4.20-5.40); White Blood Cell (WBC) Count 11.6 thou/uL (4.8-10.8)
[2022-02-13] MEDS ORDERED: Ondansetron PF 4 MG/2 ML Vial ONE (16:47)
[2022-02-13 17:05] LABS: ALT (SGPT) 18 U/L (8-55); AST (SGOT) 26 U/L (5-34); Albumin 4.2 g/dL (3.4-4.8); Alkaline Phosphatase 85 U/L (40-110); Anion Gap 14 mmol/L (10-20); BUN (Urea Nitrogen) 12 mg/dL (9.8-20.1); Bilirubin, Total 0.6 mg/dL (0.2-1.2); Calc. Creatinine Clearance 0 mL/min (70-130); Calcium 9.5 mg/dL (7.8-10.44); Carbon Dioxide 27 mmol/L (23-31); Chloride 99 mmol/L (98-107); Globulin 2.7 g/dL (2.4-3.5); Glucose 137 mg/dL (83-110); Potassium 3.4 mmol/L (3.5-5.1); Protein, Total 6.9 g/dL (5.8-8.1); Sodium 137 mmol/L (136-145)
[2022-02-13 17:07] LABS: PTT 26.4 sec (22.9-36.1)
[2022-02-13] MEDS ORDERED: Morphine 4 MG/ML VIAL ONE (17:29)
[2022-02-13 19:06] LABS: Bilirubin Negative (Negative); Blood, Urine 3+ (Negative); Clarity Turbid (Clear); Glucose, Urine (Dipstick) Normal (Negative); Ketone, Urine 10 mg/dL (Negative); Leukocyte Negative Leu/uL (Negative); Nitrite Negative (Negative); Protein, Urine (Dipstick) Negative (Neg-Trace); Specific Gravity, Urine 1.031 (1.002-1.036); Squamous Epithelial 0-3 HPF (0-3); Urobilinogen Normal mg/dL (Less than 2); pH, Urine 7.5 (5.0-9.0)
[2022-02-13 19:17] LABS: Bacteria/HPF 2+ HPF (None Seen); RBC/HPF 0-3 HPF (0-3); WBC/HPF 0-3 HPF (0-3)
[2022-02-13] MEDS ORDERED: Ondansetron ODT 4 MG TAB ONE (20:12)
== END 2022-02-13 20:31 | disposition home or self-care (01) ==
LOC: ERS 15:58
DX: S30.0XXA Contusion of lower back and pelvis, initial encounter (principal); I10 Essential (primary) hypertension; Z79.899 Other long term (current) drug therapy; W19.XXXA Unspecified fall, initial encounter
CPT/HCPCS: 36415; 70450; 71260; 72125; 74177; 80053; 81003; 81015; 85025; 85610; 85730; 93005; 96374; 96375; J2270; J2405; J3010; Q0162

== ENCOUNTER 2022-02-27 12:07 | Outpatient (CLI) | payer MEDICARE, OTHER | END 2022-02-27 12:08 | disposition home or self-care (01) | LOC: TBSIIMAG 12:07 | PROVIDERS: ATTEND Nurse Practitioner Family | DX: M48.061 Spinal stenosis, lumbar region without neurogenic claudication (principal); S32.011A Stable burst fracture of first lumbar vertebra, initial encounter for closed fracture; M47.816 Spondylosis without myelopathy or radiculopathy, lumbar region; N28.9 Disorder of kidney and ureter, unspecified | CPT/HCPCS: 72148 ==

== ENCOUNTER 2022-03-18 08:39 | Outpatient (CLI) | payer MEDICARE, OTHER | END 2022-03-18 08:40 | disposition home or self-care (01) | LOC: BICMAMMO 08:39 | PROVIDERS: ATTEND Internal Medicine | DX: M81.0 Age-related osteoporosis without current pathological fracture (principal) | CPT/HCPCS: 77080 ==

== ENCOUNTER 2022-09-15 06:40 | Day surgery (SDC) | payer MEDICARE, OTHER ==
[2022-09-11 12:51] VITALS: BMI 20.7
[2022-09-15] MEDS ORDERED: PROPOFOL 200 MG/20 ML VIAL ONE (09:18)
== END 2022-09-15 10:29 | disposition home or self-care (01) ==
LOC: SDC 06:40
PROVIDERS: ATTEND Internal Medicine Gastroenterology
PROC: 0D738ZZ Dilation of Lower Esophagus, Via Natural or Artificial Opening Endoscopic (ICD-10-PCS; principal; 2022-09-15)
DX: K22.2 Esophageal obstruction (principal); I10 Essential (primary) hypertension; R63.4 Abnormal weight loss; Z68.20 Body mass index [BMI] 20.0-20.9, adult; Z86.73 Personal history of transient ischemic attack (TIA), and cerebral infarction without residual deficits; Z79.899 Other long term (current) drug therapy; Z88.0 Allergy status to penicillin; Z88.2 Allergy status to sulfonamides; Z88.5 Allergy status to narcotic agent; Z90.49 Acquired absence of other specified parts of digestive tract
CPT/HCPCS: J2704

== ENCOUNTER 2022-11-18 10:37 | Outpatient (CLI) | payer MEDICARE, OTHER | END 2022-11-18 10:38 | disposition home or self-care (01) | LOC: BICMAMMO 10:37 | PROVIDERS: ATTEND Internal Medicine | DX: Z12.31 Encounter for screening mammogram for malignant neoplasm of breast (principal); Z98.890 Other specified postprocedural states; Z85.3 Personal history of malignant neoplasm of breast; Z80.3 Family history of malignant neoplasm of breast | CPT/HCPCS: 77063; 77067 ==